=== PATIENT | female | born 1935 | race Caucasian/White ===

== ENCOUNTER 2016-11-26 21:52 | Inpatient (IN) | payer OTHER ==
--- NOTE | 2016-11-26 21:54 | PDOC ---
History of Present Illness - General Stated Complaint: FALL Time Seen by Provider: 11/26/16 21:54
[2016-11-26] MEDS ORDERED: morphine CARPU-JECT 2 MG/1 ML DISP.SYRIN IVPUSH ONE (22:13)
--- NOTE | 2016-11-26 22:24 | PDOC ---
Attending Attestation - Resident Resident Name: Portillo Carmona - HPI HPI: 11/27/16 01:43 Pt presents to the ED complaining of R hip pain after unwitnessed fall. Xray taken at [facility] on [address] is suspicious for hip fracture. - Physicial Exam PE: 11/27/16 01:43 Agree with resident's exam. R leg shortened without external rotation. 11/27/16 01:44 11/27/16 01:50 - Medical Decision Making 11/27/16 01:44 Pt presents to the ED with findings suspicious for R hip fracture. Neurovascularly intact. Mildly hypoxic on arrival, without tachypnea, tachycardia or complaints of shortness breath. + R femoral neck fracture on Ct pelvis. Will admit to hospitalist and consult orthopedics. 11/27/16 01:50
[2016-11-26] MEDS ORDERED: morphine CARPU-JECT 2 MG/1 ML DISP.SYRIN ONE (22:31)
[2016-11-26 23:02] LABS: BASOPHIL 0.2 % (0-2.0); EOSINOPHIL 0.2 % (0-4.5); MCH 36.4 pg (25.7-33.7); MCHC 34.3 g/dl (32.0-36.0); MEAN CELL VOLUME 106.1 fl (80-96); NEUTROPHILS 81.6 % (42.8-82.8); WHITE BLOOD COUNT 10.2 K/mm3 (4.0-10.0)
--- NOTE | 2016-11-26 23:13 | PDOC ---
History of Present Illness - General Chief Complaint: Injury Stated Complaint: FALL Time Seen by Provider: 11/26/16 21:54 - History of Present Illness Initial Comments: 81 yo F with h/o Alzheimers dementia presents to the ED with right hip pain. Pt. reports right sided hip pain following fall that occurred earlier in the day. Pt. is poor historian d//t underlying dementia. She endorses right sided hip pain aggravated with movement and touch. Transferred to ED from " [facility] d/t x-ray findings of foreshortening of right hip, compatible with a femoral neck fracture. She denies fevers/chills, N/V, chest pain, back pain, constipation/diarrhea, GUERRERO, LOC, dizziness, numbness/tingling. Ambulates with walker. Past History - Past Medical History Allergies/Adverse Reactions: Allergies Allergy/AdvReac Type Severity Reaction Status Date / Time No Known Allergies Allergy Verified 11/26/16 22:17 - Psycho/Social/Smoking Cessation Hx Suicidal Ideation: No Smoking History: Unknown if ever smoked Have you smoked in the past 12 months: No Information on smoking cessation initiated: No Hx Alcohol Use: No Drug/Substance Use Hx: No Review of Systems - Review of Systems Comments:: 11/26/16 23:20 GENERAL/CONSTITUTIONAL: No fever or chills. No weakness. HEAD, EYES, EARS, NOSE AND THROAT: No change in vision. No ear pain or discharge. No sore throat.- CARDIOVASCULAR: No chest pain or shortness of breath RESPIRATORY: No cough, wheezing, or hemoptysis. GASTROINTESTINAL: No nausea, vomiting, diarrhea or constipation. GENITOURINARY: No dysuria, frequency, or change in urination. MUSCULOSKELETAL: Right hip pain. No neck or back pain. SKIN: No rash NEUROLOGIC: No headache, vertigo, loss of consciousness, or change in strength/ sensation. ENDOCRINE: No increased thirst. No abnormal weight change HEMATOLOGIC/LYMPHATIC: No anemia, easy bleeding, or history of blood clots. ALLERGIC/IMMUNOLOGIC: No hives or skin allergy. *Physical Exam - Vital Signs Last Vital Signs Temp Pulse Resp BP Pulse Ox 98.6 F 80 20 162/73 91 L 11/26/16 22:05 11/26/16 22:05 11/26/16 22:05 11/26/16 22:05 11/26/16 22:05 - Physical Exam Comments: 11/26/16 23:21 GENERAL: Awake A &O to person and place. HEAD: No signs of trauma, normocephalic, atraumatic EYES: PERRLA, EOMI, sclera anicteric, conjunctiva clear ENT: Auricles normal inspection, hearing grossly normal, nares patent, oropharynx clear without exudates. Moist mucosa NECK: Normal ROM, supple, no lymphadenopathy, JVD, or masses LUNGS: No distress, speaks full sentences, clear to auscultation bilaterally HEART: Regular rate and rhythm, normal S1 and S2, no murmurs, rubs or gallops, peripheral pulses normal and equal bilaterally. ABDOMEN: Soft, nontender, normoactive bowel sounds. No guarding, no rebound. No masses EXTREMITIES: +right sided ttp at right greater trochanter. + Venous stasis change BL LE. Decreased active and pasive range of motion at right extremity. Right leg appears shorter than left. No clubbing or cyanosis. SKIN: Warm, Dry, normal turgor, no rashes or lesions noted. Heart Score/ECG Review - Electrocardiogram EKG: Normal - Age Age: >/= 65 - ECG Intrepretation Rhythm: Regular Rhythm - Combs Combs: Normal - ECG Impressions Normal ECG: Yes ED Treatment Course - LABORATORY CBC & Chemistry Diagram: 11/26/16 22:41 11/26/16 22:41 - Medications Given in the ED: ED Medications Discontinued Medications Generic Name Dose Route Start Last Admin Trade Name Freq PRN Reason Stop Dose Admin Morphine Sulfate 2 mg 11/26/16 22:13 11/26/16 22:43 Morphine Injection - IVPUSH 11/26/16 22:14 2 mg ONCE ONE Administration Medical Decision Making - Medical Decision Making 11/26/16 23:24 81 yo F with h/o Alzheimers dementia who presents with right hip pain following fall at outside nursing facility. Pt. received outside plain film which revealed forshortenign of right hip compatible with femoral neck fracture. She arrived with O2 91% RA. She denies any other associated complaints. Physical exam reveals shortened externally rotated right lower extremity. DDx: Right hip fracture, PE, pneumonia, ED Course: CBC: Unremarkable CMP: Unremarkable 11/27/16 01:37 CT Pelvis: Right femoral neck fracture Admit to med/surg *DC/Admit/Observation/Transfer Diagnosis at time of Disposition: Fracture of neck of femur Qualifiers: Encounter type: initial encounter Fracture type: closed Laterality: right Qualified Code(s): S72.001A - Fracture of unspecified part of neck of right femur, initial encounter for closed fracture - Discharge Dispostion Admit: Yes
[2016-11-26] MEDS ORDERED: LORazepam 2 MG/ML SDV VIAL ONE (23:21)
[2016-11-26 23:27] LABS: ALBUMIN 4.2 g/dl (3.4-5.0); ANION GAP 9 (8-16); BILIRUBIN,TOTAL 0.5 mg/dL (0.2-1.0); CALCIUM 9.1 mg/dL (8.5-10.1); CO2 29 mmol/L (21-32); CREATININE 0.9 mg/dL (0.55-1.02); GLUCOSE,RANDOM 135 mg/dL (74-106); SGOT/AST 19 U/L (15-37); SGPT/ALT 26 U/L (12-78); TOT PROT 6.5 g/dl (6.4-8.2)
[2016-11-26 23:29] LABS: ALK PHOS 74 U/L (45-117); CPK 158 IU/L (26-192); TROPONIN I < 0.02 ng/ml (0.00-0.05)
[2016-11-26 23:35] LABS: PLATELET COUNT 99 K/MM3 (134-434)
[2016-11-26 23:36] LABS: MACROCYTOSIS 2+; PLATELET COMMENT2 NO CLOTTING DETECTED; PLATELET ESTIMATE SLT DECREASED (NORMAL)
[2016-11-27] MEDS ORDERED: morphine CARPU-JECT 2 MG/1 ML DISP.SYRIN IVPUSH PRN ×3 (02:34→18:14)
--- NOTE | 2016-11-27 02:34 | MSN ---
Admitting History and Physical - Admission Chief Complaint: R hip pain History of Present Illness: Pt is a 81 year old female with dementia who is a poor historian. Pt states that she has right hip pain that started today. She denies any falls or other trauma before the pain started. She denies any chest pain, SOB, or abdominal pain. According the the paperwork sent with her, she started to complain of severe right hip pain after she was found sitting on the floor. She was given percocet at the time, and stat Xray revealed right femoral neck fracture. 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: Alzheimer's (stage unspecified), Dementia Renal/: Yes: UTI ...: No (Postmenopausal) Heme/Onc: Yes: Anemia (unspecified aplastic anemia) Psych: Yes: Psychosis (unspecific) ENT: Yes: Allergic Rhinitis - Smoking History Smoking history: Unknown if ever smoked Have you smoked in the past 12 months: No - Alcohol/Substance Use Hx Alcohol Use: No - Social History Usual Living Arrangement: Yes: [facility] Home Medications - Allergies Allergies/Adverse Reactions: Allergies Allergy/AdvReac Type Severity Reaction Status Date / Time No Known Allergies Allergy Verified 11/26/16 22:17 - Home Medications Home Medications: Ambulatory Orders Acetaminophen [Tylenol .Extra-Strength -] 1,000 mg PO BID PRN 11/27/16 Brimonidine Tartrate/Timolol [Combigan 0.2%-0.5% Eye Drops] 1 drop OU BID Citalopram Hydrobromide [Celexa -] 10 mg PO DAILY 11/27/16 Cyanocobalamin Vit B-12 Inj. [Vitamin B12 Injection -] 1 ml IM Q30D 11/27/16 Folic Acid 1 tab PO DAILY 11/27/16 Hydrocortisone 2.5% Lotion [Hytone 2.5% Lotion -] 1 applic TD DAILY 11/27/16 Latanoprost 0.005% Eye Drops [Xalatan 0.005% Eye Drops -] 1 drop OU HS 11/27/16 Oxycodone HCl/Acetaminophen [Percocet 5-325 mg Tablet] 1 tab PO TID PRN Risperidone [Risperdal -] 0.25 mg PO TID 11/27/16 Risperidone [Risperdal -] 0.5 mg PO TID 11/27/16 Family Disease History - Family Disease History Family History: Unable to Obtain Review of Systems - Review of Systems Constitutional: denies: Chills, Fever Cardiovascular: denies: Chest Pain Respiratory: denies: SOB Gastrointestinal: denies: Constipation, Diarrhea Physical Examination Vital Signs: Vital Signs Temperature 98.6 F 11/26/16 22:05 Pulse Rate 80 11/26/16 22:05 Respiratory Rate 20 11/26/16 22:05 Blood Pressure 162/73 11/26/16 22:05 O2 Sat by Pulse Oximetry (%) 91 L 11/26/16 22:05 Constitutional: Yes: Well Nourished, No Distress, Calm Eyes: Yes: Conjunctiva Clear, EOM Intact HENT: Yes: Atraumatic, Normocephalic Neck: Yes: Supple, Trachea Midline Cardiovascular: Yes: Regular Rate and Rhythm, S1, S2 Respiratory: Yes: Regular, CTA Bilaterally Gastrointestinal: Yes: Normal Bowel Sounds, Soft ...Rectal Exam: Yes: Deferred Extremities: Yes: Other (R hip tenderness) Edema: Yes Edema: LLE: 2+ (up to mid lopez), RLE: 2+ (up to mid lopez) Peripheral Pulses WNL: Yes Peripheral Pulses: Left Radial: 2+, Right Radial: 2+, Left Doralis Pedis: 2+, Right Dorsalis Pedis: 2+ Integumentary: Yes: WNL Neurological: Yes: Alert, Oriented (oriented to person but not to place or time) , Cran Nerves II-XII Intact ...Motor Strength: WNL Psychiatric: Yes: Alert, Oriented (oriented to person but not place or time) Labs: Laboratory Results - last 24 hr 11/26/16 11/26/16 11/26/16 22:41 22:41 22:41 WBC 10.2 H RBC 3.45 L Hgb 12.6 Hct 36.7 MCV 106.1 H MCH 36.4 H MCHC 34.3 RDW 13.0 Plt Count 99 L MPV 8.0 Neutrophils % 81.6 Lymphocytes % 7.3 L Monocytes % 10.7 H Eosinophils % 0.2 Basophils % 0.2 Platelet Estimate Slt decreased Platelet Comment No clotting detected Macrocytosis 2+ Morphology Comment INR 1.00 Sodium 139 Potassium 3.8 Chloride 101 Carbon Dioxide 29 Anion Gap 9 BUN 17 Creatinine 0.9 Creat Clearance w eGFR 59.80 Random Glucose 135 H Calcium 9.1 Total Bilirubin 0.5 AST 19 ALT 26 Alkaline Phosphatase 74 Creatine Kinase 158 Creatine Kinase Index 2.2 CK-MB (CK-2) 3.525 Troponin I < 0.02 B-Natriuretic Peptide 106.58 Total Protein 6.5 Albumin 4.2 Blood Type Antibody Screen 11/26/16 11/27/16 22:41 00:50 WBC RBC Hgb Hct MCV MCH MCHC RDW Plt Count MPV Neutrophils % Lymphocytes % Monocytes % Eosinophils % Basophils % Platelet Estimate Platelet Comment Macrocytosis Morphology Comment INR Sodium Potassium Chloride Carbon Dioxide Anion Gap BUN Creatinine Creat Clearance w eGFR Random Glucose Calcium Total Bilirubin AST ALT Alkaline Phosphatase Creatine Kinase Creatine Kinase Index CK-MB (CK-2) Troponin I B-Natriuretic Peptide Total Protein Albumin Blood Type O NEGATIVE O NEGATIVE Antibody Screen Negative Imaging - Results X-ray: Image Reviewed (right hip fracture of the femoral neck) Cat Scan: Image Reviewed (right hip fracture of the femoral neck) Assessment/Plan Pt is a 81 year old female with a PMH of dementia who was brought in after being found on the floor and complaining of R hip pain. 1) R femoral neck fracture * Pain control with IV morphine 1mg q4hr * IV hydration with NS * Falls risk precautions * Immobilize the pt * NPO * Neurologic exam and peripheral pulses q2hr * Consult ortho * Consult PT 2) Thrombocytopenia * Continue to monitor 3) Hypoxia * Place on 2L O2 after saturation dropped to 88% 4) Prophylaxis * DVT: SCDs * GI: None indicated at this time 5) Dispo * Admit to Med-Surg
--- NOTE | 2016-11-27 02:40 | HP ---
CHIEF COMPLAINT: R hip pain PCP: Dr. Sherfi Haque HISTORY OF PRESENT ILLNESS: Pt is a 81yo F w/ PMHx of Alzheimers Dementia who presented from [facility] with R hip pain. Patient is a poor historian, most of the history is obtained from paperwork from [facility]. States that patient was sitting on the floor and upon assessment, complained of severe R hip pain. No fall was witnessed. Patient does not recall a fall. She was given Percocet and a stat Hip XR was ordered which revealed a R femoral neck fracture. Other than the R hip pain, the patient offers no other complaints. No fevers, no chills, no CP, no SOB. ER course was notable for: (1) EKG - NSR (2) Pelvic CT w/o contrast - diffuse bone demineralization, acute mildly impacted subcapital R femoral neck fracture (3) Morphine 2mg IVP x1 (4) CXR - reviewed by MD, no focal consolidation or congestion, CVA visible bilaterally Recent Travel: Denies PAST MEDICAL HISTORY: Alzheimers Dementia Social History: Lives at [facility] Smoking: Unable to obtain Alcohol: Unable to obtain Drugs: Unable to obtain Family History: Unable to obtain Allergies: Aspirin HOME MEDICATIONS: Home Medications Medication Instructions Recorded Acetaminophen [Tylenol 1,000 mg PO BID PRN 11/27/16 .Extra-Strength -] Brimonidine Tartrate/Timolol 1 drop OU BID 11/27/16 [Combigan 0.2%-0.5% Eye Drops] Citalopram Hydrobromide [Celexa -] 10 mg PO DAILY 11/27/16 Cyanocobalamin Vit B-12 Inj. 1 ml IM Q30D 11/27/16 [Vitamin B12 Injection -] Folic Acid 1 tab PO DAILY 11/27/16 Hydrocortisone 2.5% Lotion [Hytone 1 applic TD DAILY 11/27/16 2.5% Lotion -] Latanoprost 0.005% Eye Drops 1 drop OU HS 11/27/16 [Xalatan 0.005% Eye Drops -] Oxycodone HCl/Acetaminophen 1 tab PO TID PRN 11/27/16 [Percocet 5-325 mg Tablet] Risperidone [Risperdal -] 0.25 mg PO TID 11/27/16 Risperidone [Risperdal -] 0.5 mg PO TID 11/27/16 REVIEW OF SYSTEMS CONSTITUTIONAL: Absent: fever, chills, diaphoresis, generalized weakness, malaise, loss of appetite, weight change HEENT: Absent: rhinorrhea, nasal congestion, throat pain, throat swelling, difficulty swallowing, mouth swelling, ear pain, eye pain, visual changes CARDIOVASCULAR: Absent: chest pain, syncope, palpitations, irregular heart rate, lightheadedness , peripheral edema RESPIRATORY: Absent: cough, shortness of breath, dyspnea with exertion, orthopnea, wheezing, stridor, hemoptysis GASTROINTESTINAL: Absent: abdominal pain, abdominal distension, nausea, vomiting, diarrhea, constipation, melena, hematochezia GENITOURINARY: Absent: dysuria, frequency, urgency, hesitancy, hematuria, flank pain, genital pain MUSCULOSKELETAL: Absent: joint swelling, back pain, neck pain Present: arthralgia, myalgia SKIN: Absent: rash, itching, pallor HEMATOLOGIC/IMMUNOLOGIC: Absent: easy bleeding, easy bruising, lymphadenopathy, frequent infections ENDOCRINE: Absent: unexplained weight gain, unexplained weight loss, heat intolerance, cold intolerance NEUROLOGIC: Absent: headache, focal weakness or paresthesias, dizziness, unsteady gait, seizure, mental status changes, bladder or bowel incontinence PSYCHIATRIC: Absent: anxiety, depression, suicidal or homicidal ideation, hallucinations. PHYSICAL EXAMINATION GEN: Awake, alert, oriented x1 to person - at baseline, confused HEENT: PERRLA, EOMi, no cervical LAD, no scalp lacerations CV: S1, S2, RRR LUNG: Difficult to assess, anterior lung exam was clear ABD: Soft, NT, ND, normoactive BS MSK: Lower Extremities - blue discolored bruise on R hip, B/L +1 pitting edema from midshin to feet w/ mild venous stasis changes, +2 pulses Upper Extremities - no edema, no erythema NEURO: AAO x1, confused at baseline, follows commands, CN 2-12 grossly intact, no facial droop, 5/5 muscle strength Laboratory Last Values WBC 10.2 K/mm3 (4.0-10.0) H 11/26/16 22:41 RBC 3.45 M/mm3 (3.60-5.2) L 11/26/16 22:41 Hgb 12.6 GM/dL (10.7-15.3) 11/26/16 22:41 Hct 36.7 % (32.4-45.2) 11/26/16 22:41 MCV 106.1 fl (80-96) H 11/26/16 22:41 MCH 36.4 pg (25.7-33.7) H 11/26/16 22:41 MCHC 34.3 g/dl (32.0-36.0) 11/26/16 22:41 RDW 13.0 % (11.6-15.6) 11/26/16 22:41 Plt Count 99 K/MM3 (134-434) L 11/26/16 22:41 MPV 8.0 fl (7.5-11.1) 11/26/16 22:41 Neutrophils % 81.6 % (42.8-82.8) 11/26/16 22:41 Lymphocytes % 7.3 % (8-40) L 11/26/16 22:41 Monocytes % 10.7 % (3.8-10.2) H 11/26/16 22:41 Eosinophils % 0.2 % (0-4.5) 11/26/16 22:41 Basophils % 0.2 % (0-2.0) 11/26/16 22:41 Platelet Estimate Slt decreased (NORMAL) 11/26/16 22:41 Platelet Comment No clumping noted 11/26/16 22:41 Platelet Comment No clotting detected 11/26/16 22:41 Macrocytosis 2+ 11/26/16 22:41 Morphology Comment 11/26/16 22:41 INR 1.00 (0.82-1.09) 11/26/16 22:41 Sodium 139 mmol/L (136-145) 11/26/16 22:41 Potassium 3.8 mmol/L (3.5-5.1) 11/26/16 22:41 Chloride 101 mmol/L (98-107) 11/26/16 22:41 Carbon Dioxide 29 mmol/L (21-32) 11/26/16 22:41 Anion Gap 9 (8-16) 11/26/16 22:41 BUN 17 mg/dL (7-18) 11/26/16 22:41 Creatinine 0.9 mg/dL (0.55-1.02) 11/26/16 22:41 Creat Clearance w eGFR 59.80 (>60) 11/26/16 22:41 Random Glucose 135 mg/dL (74-106) H 11/26/16 22:41 Calcium 9.1 mg/dL (8.5-10.1) 11/26/16 22:41 Total Bilirubin 0.5 mg/dL (0.2-1.0) 11/26/16 22:41 AST 19 U/L (15-37) 11/26/16 22:41 ALT 26 U/L (12-78) 11/26/16 22:41 Alkaline Phosphatase 74 U/L (45-117) 11/26/16 22:41 Creatine Kinase 158 IU/L (26-192) 11/26/16 22:41 Creatine Kinase Index 2.2 % (0.0-5.0) 11/26/16 22:41 CK-MB (CK-2) 3.525 ng/mL (0.5-3.6) 11/26/16 22:41 Troponin I < 0.02 ng/ml (0.00-0.05) 11/26/16 22:41 B-Natriuretic Peptide 106.58 pg/ml (5-450) 11/26/16 22:41 Total Protein 6.5 g/dl (6.4-8.2) 11/26/16 22:41 Albumin 4.2 g/dl (3.4-5.0) 11/26/16 22:41 Blood Type O NEGATIVE 11/27/16 00:50 Antibody Screen Negative 11/26/16 22:41 Home Medication List Medication Instructions Recorded Confirmed Type Acetaminophen [Tylenol 1,000 mg PO BID PRN 11/27/16 11/27/16 History .Extra-Strength -] Brimonidine Tartrate/Timolol 1 drop OU BID 11/27/16 11/27/16 History [Combigan 0.2%-0.5% Eye Drops] Citalopram Hydrobromide [Celexa -] 10 mg PO DAILY 11/27/16 11/27/16 History Cyanocobalamin Vit B-12 Inj. 1 ml IM Q30D 11/27/16 11/27/16 History [Vitamin B12 Injection -] Folic Acid 1 tab PO DAILY 11/27/16 11/27/16 History Hydrocortisone 2.5% Lotion [Hytone 1 applic TD DAILY 11/27/16 11/27/16 History 2.5% Lotion -] Latanoprost 0.005% Eye Drops 1 drop OU HS 11/27/16 11/27/16 History [Xalatan 0.005% Eye Drops -] Oxycodone HCl/Acetaminophen 1 tab PO TID PRN 11/27/16 11/27/16 History [Percocet 5-325 mg Tablet] Risperidone [Risperdal -] 0.25 mg PO TID 11/27/16 11/27/16 History Risperidone [Risperdal -] 0.5 mg PO TID 11/27/16 11/27/16 History Active Medications Generic Name Dose Route Start Last Admin Trade Name Toniq PRN Reason Stop Dose Admin Citalopram Hydrobromide 10 mg 11/27/16 10:00 Celexa - PO DAILY MAHESH Folic Acid mg 11/27/16 10:00 Folic Acid - PO DAILY [facility] Hydrocortisone 1 applic 11/27/16 09:00 Hytone 2.5% Lotion - TP BID [facility] Sodium Chloride 1,000 mls @ 42 mls/hr 11/27/16 02:45 Normal Saline - IV ASDIR [facility] Latanoprost 1 drop 11/27/16 22:00 Xalatan 0.005% Eye Drops - OU HS [facility] Morphine Sulfate 1 mg 11/27/16 02:34 Morphine Injection - IVPUSH Q6H PRN PAIN Non-Formulary Medication 1 drop 11/27/16 10:00 Brimonidine Tartrate/Timolol [Combigan 0.2%-0.5% Eye Drops] OU BID [facility] Risperidone 0.25 mg 11/27/16 06:00 Risperdal - PO TID [facility] ASSESSMENT/PLAN: Pt is an 81yo F w/ PMHx of dementia who presented from [facility] w/ R hip pain found to have a R femoral neck fx. # Right Femoral Neck Fracture - Possible fall, pt was found sitting on floor - No obvious compromise to nerves or arterial circulation - Pain control w/ Morphine 1mg Q6 PRN - Ortho consulted - Coags, Type + Screen done - Bedrest for now - can change based on ortho reccs to allow Physical Therapy - Fall precautions - Neuro checks Q4 # Thrombocytopenia - On papers from [facility], no indication of chronic diagnosis - No active bleeding currently - We took the thrombocytopenia into consideration when determining DVT prophylaxis. Since the patient is high risk for DVT, the benefits of thromboprophylaxis with Heparin outweighs the risks. - Continue to trend PLT, monitor for HIT # Leukocytosis - Likely reactive, no signs of active infection, no fever # Hypoxia - O2 91 on admission, 88 on exam resting, improved to 96 w/ 2L - Continue 2L NC # Macrocytosis - No anemia - Macrocytosis is likely from folate + B12 use # Hx of MDD - Continue Celexa 10mg QD # Hx of Psychosis - Continue Risperdal 0.75mg TID # Prophylaxis - DVT: SCDs + 1 dose Heparin SQ given since patient is high risk for DVT, and benefits outweigh risks. If no procedure switch to Heparin - GI: Not indicated - Deconditioning: PT ordered # FEN - Fluids: IVNS 42cc/hr - can discontinue if no procedure - Electrolytes: WNL - Nutrition: NPO for possible procedure - can return to Regular diet if no procedure (pt had Regular diet w/ regular consistency at [facility]) # Dispo - Admit to Med/Surg - Pain control - Await ortho reccs # Med Rec - Medications were reconciled w/ [facility] paperwork, added in chart Case d/w Dr. Pedroza and Dr. Dana Sahni, PGY1 - Internal Medicine Visit type - Emergency Visit Emergency Visit: Yes ED Registration Date: 11/27/16 Care time: The patient presented to the Emergency Department on the above date and was hospitalized for further evaluation of their emergent condition. - New Patient This patient is new to me today: Yes Date on this admission: 11/27/16 - Critical Care Critical Care patient: No
[2016-11-27] MEDS ORDERED: SODIUM CHLORIDE 1,000 ML IV SCH (02:45)
[2016-11-27 04:43] VITALS: BMI 25.6
[2016-11-27] MEDS ORDERED: PT OWN MED DRAWER 7, Y5N ONE ×3 (05:28→22:07)
--- NOTE | 2016-11-27 05:41 | PN ---
Teaching Attending Note Name of Resident: Trae Sahni ATTENDING PHYSICIAN STATEMENT I saw and evaluated the patient. I reviewed the resident's note and discussed the case with the resident. I agree with the resident's findings and plan as documented. SUBJECTIVE:Patient transferred from [facility] after being found on the floor c/o right hip pain. PMH; Dementia and therefore poor historian OBJECTIVE: Physical exam significant for pain on palpation of right hip with limited ROM, slight edema, palpable pulses ASSESSMENT AND PLAN: Right hip fracture s/p unwitnessed fall fall risk precautions morphine 1mg q6h prn for pain ortho consult b12 and folate levels dvt prophylaxis
[2016-11-27] MEDS: risperiDONE 0.25 MG TABLET (FP) PO SCH ×3 (06:02→22:07)
[2016-11-27] MEDS: risperiDONE 0.5 MG TABLET (FP) PO SCH ×3 (06:03→22:04)
[2016-11-27] MEDS ORDERED: HEPARIN NA (PORCINE) 5,000 UNITS/ML 1ML VIAL SQ ONE (06:48)
[2016-11-27] MEDS ORDERED: CITALOPRAM HYDROBROMIDE 10 MG TABLET (FP) PO SCH (10:00)
[2016-11-27] MEDS ORDERED: TIMOLOL 0.5% OPHTHALMIC SOL 5 ML BOTTLE OU SCH (10:00)
[2016-11-27] MEDS ORDERED: FOLIC ACID 1 MG TABLET (FP) PO SCH (10:00)
[2016-11-27] MEDS ORDERED: BRIMONIDINE TARTRATE 0.2% OPHTHALMIC 5 ML BOTTLE OU SCH (10:00)
[2016-11-27] MEDS ORDERED: PATIENT'S OWN MEDICATION (NON-FORMULARY) (Brimonidine Tartrate/Timolol [Combigan 0.2%-0.5% OU SCH (10:00)
[2016-11-27] MEDS: HYDROCORTISONE 2.5% LOTION - 1 BOTTLE TP SCH ×2 (10:49→22:04)
--- NOTE | 2016-11-27 14:14 | PN ---
Physical Exam: SUBJECTIVE: Patient seen and examined at bed side. Se seems comfortable , not able to obtain history due to dementia. OBJECTIVE: Vital Signs Period Temp Pulse Resp BP Sys/Tena Pulse Ox Last 24 Hr 98.2 F-99.7 F 72-86 18-20 147-190/76-88 95-98 GENERAL: The patient is awake, alert, and fully oriented, in no acute distress. HEAD: Normal with no signs of trauma. EYES: PERRL, conjunctiva clear. No ptosis. ENT: moist mucous membranes. NECK: Trachea midline, full range of motion, supple. LUNGS: Breath sounds equal, clear to auscultation bilaterally, no wheezes, no crackles, no accessory muscle use. HEART: Regular rate and rhythm, S1, S2 without murmur, rub or gallop. ABDOMEN: Soft, nontender, nondistended, normoactive bowel sounds, no guarding, no rebound, no hepatosplenomegaly, no masses. EXTREMITIES: 2+ pulses, warm, well-perfused, no edema. painful on movement. +2 edema NEUROLOGICAL: Normal speech, gait not observed. PSYCH: Normal mood, normal affect. SKIN: Warm, dry, normal turgor, no rashes or lesions noted Active Medications Generic Name Dose Route Start Last Admin Trade Name Freq PRN Reason Stop Dose Admin Brimonidine Tartrate 1 drop 11/27/16 10:00 11/27/16 10:49 Alphagan 0.2% - OU Not Given BID MAHESH Citalopram Hydrobromide 10 mg 11/27/16 10:00 11/27/16 10:49 Celexa - PO 10 mg DAILY MAHESH Administration Folic Acid 1 mg 11/27/16 10:00 11/27/16 10:49 Folic Acid - PO 1 mg DAILY MAHESH Administration Heparin Sodium (Porcine) 5,000 unit 11/27/16 22:00 Heparin - SQ BID MAHESH Hydrocortisone 1 applic 11/27/16 09:00 11/27/16 10:49 Hytone 2.5% Lotion - TP Not Given BID MAHESH Sodium Chloride 1,000 mls @ 42 mls/hr 11/27/16 02:45 11/27/16 04:03 Normal Saline - IV 42 mls/hr ASDIR MAHESH Administration Latanoprost 1 drop 11/27/16 22:00 Xalatan 0.005% Eye Drops - OU HS MAHESH Morphine Sulfate 1 mg 11/27/16 05:38 11/27/16 06:05 Morphine Injection - IVPUSH 1 mg Q6H PRN Administration PAIN Risperidone 0.25 mg 11/27/16 06:00 11/27/16 06:02 Risperdal - PO 0.25 mg TID MAHESH Administration Risperidone 0.5 mg 11/27/16 06:00 11/27/16 06:03 Risperdal - PO 0.5 mg TID MAHESH Administration Timolol Maleate 1 drop 11/27/16 10:00 11/27/16 10:50 Timoptic 0.5% OU Not Given BID MAHESH CBC, BMP 11/26/16 22:41 11/26/16 22:41 ASSESSMENT/PLAN: Patient is currently medically optomized for this orthopedics surgery at this time. Pt is an 81yo F w/ PMHx of dementia who presented from [facility] w/ R hip pain found to have a R femoral neck fx. # Right Femoral Neck Fracture - Possible fall, pt was found sitting on floor - Sensation intact, - Pain control w/ Morphine 1mg Q6 PRN - Ortho consulted - Coags, Type + Screen done - Bedrest for now - Fall precautions - Neuro checks Q4 - will benifit for ALISHA after the surgery #Patient is currently medically optomized for this orthopedics surgery at this time. # Thrombocytopenia - PLT 99 on admission - No active bleeding currently - Continue to trend PLT, monitor for HIT # Leukocytosis - Likely reactive, no signs of active infection, no fever - F/U CBC # Hypoxia - O2 91 on admission, 88 on exam resting, improved to 96 w/ 2L - Continue 2L NC # Macrocytosis - No anemia - Macrocytosis is likely from folate + B12 use # Hx of MDD - Continue Celexa 10mg QD # Hx of Psychosis - Continue Risperdal 0.75mg TID # Prophylaxis - DVT: SCDs + 1 dose Heparin SQ given since patient is high risk for DVT, - continue Heparin after procedure - GI: Not indicated - Deconditioning: PT ordered # FEN - Fluids: IVNS 42cc/hr - Electrolytes: WNL - Nutrition: NPO for procedure today # Dispo - Admit to Med/Surg - Pain control This is an 81 year old woman with a history of dementia who presented from [facility] with right hip pain after a fall. 1. Right femoral neck fracture - Pain control - Orthopedic surgery consult 2. Thrombocytopenia - Monitor platelets 3. Alzheimer dementia with depression and psychosis - Continue Jose Wilks Visit type - Emergency Visit Emergency Visit: Yes ED Registration Date: 11/27/16 Care time: The patient presented to the Emergency Department on the above date and was hospitalized for further evaluation of their emergent condition. - New Patient This patient is new to me today: Yes Date on this admission: 11/27/16 - Critical Care Critical Care patient: No
[2016-11-27] MEDS ORDERED: ceFAZolin SODIUM 1 GM VIAL ONE (16:07)
[2016-11-27] MEDS ORDERED: ceFAZolin SODIUM 1 GM VIAL IVPB ONE (16:25)
--- NOTE | 2016-11-27 17:03 | CONSULT ---
Consult - text type - Consultation Consultation Note: Asked to evaluate this 81F admitted with a right FN fracture. Patient is demented. Prior ambulator. Had an unwitnessed fall. Resides at [facility]. PMH: dementia Meds: reviewed in chart All: NKDA FH: n/C ROS: unable to obtain PE: awake, generally cooperative but intermittently following instructions skin no lesions, ecchymosus right lateral hip Painful ROM of right hip Neurologically grossly intact Distal pulses 2+ Xrays/CT: valgus impacted FN fx Imp: Valgus impacted FN fx -indicated for cannulated screws -R/B/A discussed in detail with healthcare proxy Jelly Mccall. Risks include anesthesia complications, infection, non union, malunion, hardware failure. May need arthroplasty if does not heal.
--- NOTE | 2016-11-27 18:16 | PN ---
Teaching Attending Note Name of Resident: Dennys Head ATTENDING PHYSICIAN STATEMENT I saw and evaluated the patient. I reviewed the resident's note and discussed the case with the resident. I agree with the resident's findings and plan as documented. SUBJECTIVE: Patient appears comfortable. OBJECTIVE: Vital Signs Period Temp Pulse Resp BP Sys/Tena Pulse Ox Last 24 Hr 98.2 F-99.7 F 72-104 18-20 147-190/73-88 91-98 HEART: S1S2, RRR LUNGS: Clear ABDOMEN: Soft, non-distended, normal BS EXTREMITIES: No edema Current Medications Generic Name Dose Route Start Last Admin Trade Name Freq PRN Reason Stop Dose Admin Brimonidine Tartrate 1 drop 11/27/16 10:00 11/27/16 10:49 Alphagan 0.2% - OU Not Given BID MAHESH Citalopram Hydrobromide 10 mg 11/27/16 10:00 11/27/16 10:49 Celexa - PO 10 mg DAILY MAHESH Administration Docusate Sodium 100 mg 11/27/16 22:00 Colace - PO BID MAHESH Folic Acid 1 mg 11/27/16 10:00 11/27/16 10:49 Folic Acid - PO 1 mg DAILY MAHESH Administration Heparin Sodium (Porcine) 5,000 unit 11/27/16 22:00 Heparin - SQ BID MAHESH Hydrocortisone 1 applic 11/27/16 09:00 11/27/16 10:49 Hytone 2.5% Lotion - TP Not Given BID MAHESH Sodium Chloride 1,000 mls @ 42 mls/hr 11/27/16 02:45 11/27/16 04:03 Normal Saline - IV 42 mls/hr ASDIR MAHESH Administration Cefazolin Sodium 1 gm/ 50 mls @ 100 mls/hr 11/27/16 18:00 Dextrose IVPB 11/28/16 02:29 Q8H-IV MAHESH Latanoprost 1 drop 11/27/16 22:00 Xalatan 0.005% Eye Drops - OU HS MAHESH Morphine Sulfate 1 mg 11/27/16 05:38 11/27/16 06:05 Morphine Injection - IVPUSH 1 mg Q6H PRN Administration PAIN Risperidone 0.25 mg 11/27/16 06:00 11/27/16 14:26 Risperdal - PO Not Given TID MAHESH Risperidone 0.5 mg 11/27/16 06:00 11/27/16 14:26 Risperdal - PO Not Given TID MAHESH Timolol Maleate 1 drop 11/27/16 10:00 11/27/16 10:50 Timoptic 0.5% OU Not Given BID MAHESH ASSESSMENT AND PLAN: This is an 81 year old woman with a history of dementia who presented from [facility] with right hip pain after a fall. 1. Right femoral neck fracture - Pain control - Orthopedic surgery consult 2. Thrombocytopenia - Monitor platelets 3. Alzheimer dementia with depression and psychosis - Continue Celexa, Risperdal
[2016-11-27] MEDS: CEFAZOLIN 1 GM in DEXTROSE 5%-WATER - 50 ML IVPB SCH (20:54)
[2016-11-27] MEDS ORDERED: HEPARIN NA (PORCINE) 5,000 UNITS/ML 1ML VIAL SQ SCH (22:00)
[2016-11-27] MEDS ORDERED: LATANOPROST 0.005% OPHTH SOLN 2.5ML BOTTLE OU SCH (22:00)
[2016-11-27] MEDS: DOCUSATE SODIUM 100 MG CAPSULE (FP) PO SCH (22:04)
[2016-11-27] MEDS: BRIMONIDINE TARTRATE 0.2% OPHTHALMIC 5 ML BOTTLE OU SCH (22:04)
[2016-11-27] MEDS: HEPARIN NA (PORCINE) 5,000 UNITS/ML 1ML VIAL SQ SCH (22:04)
[2016-11-27] MEDS: TIMOLOL 0.5% OPHTHALMIC SOL 5 ML BOTTLE OU SCH (22:05)
[2016-11-27] MEDS: LATANOPROST 0.005% OPHTH SOLN 2.5ML BOTTLE OU SCH (22:05)
[2016-11-28] MEDS ORDERED: ceFAZolin SODIUM 1 GM VIAL ONE (01:03)
[2016-11-28] MEDS ORDERED: DEXTROSE 5%-WATER - 50 ML IVPB ONE (01:04)
[2016-11-28] MEDS: CEFAZOLIN 1 GM in DEXTROSE 5%-WATER - 50 ML IVPB SCH (01:05)
[2016-11-28] MEDS ORDERED: PT OWN MED DRAWER 7, Y5N ONE ×3 (05:54→20:41)
[2016-11-28] MEDS: risperiDONE 0.5 MG TABLET (FP) PO SCH ×3 (05:58→21:21)
[2016-11-28] MEDS: risperiDONE 0.25 MG TABLET (FP) PO SCH ×3 (05:58→22:01)
--- NOTE | 2016-11-28 07:57 | OP ---
DATE OF OPERATION: 11/27/2016 PREOPERATIVE DIAGNOSIS: Right valgus impacted femoral neck fracture. POSTOPERATIVE DIAGNOSIS: Right valgus impacted femoral neck fracture. PROCEDURE PERFORMED: Operative fixation of right valgus impacted femoral neck fracture with 3 cannulated screws. IMPLANTS: [place] partially threaded cannulated screws 6.5 mm in diameter x3 (90 mm, 90 mm, 100 mm). SURGEON: Johann Craig MD ANESTHESIA: Spinal. INDICATION: The patient is an 81-year-old female who sustained an [facility]ed [facility]. She was brought into the emergency room because she was complaining of severe right hip pain. X-rays showed a valgus impacted right femoral neck fracture. She was indicated for operative fixation. Risks, benefits, and alternatives of the surgery were discussed in detail with her healthcare proxy, sister, and informed consent was obtained. DESCRIPTION OF PROCEDURE: The patient was brought into the operating room via stretcher, and spinal anesthesia was administered by the anesthesiologist. The patient was then transferred onto the OR fracture table. Right lower extremity was placed in gentle internal rotation without traction placed so as not to displace the fracture. The left lower extremity was placed in flexion, external rotation. Prophylactic IV antibiotics were administered. The right hip was prepped and draped in the usual sterile fashion. Fluoroscopic exam was brought in, and AP and lateral laparoscopic radiographs showed excellent alignment without displacement of the fracture. A small incision was made on the right lateral thigh, and 3 guidewires were inserted under fluoroscopic guidance. Three cannulated screws were then inserted after passing the cannulated drill. Excellent position of the screw was noted in both the AP and lateral planes. The wound was then irrigated and the dermal tissue applied with 2-0 Vicryl suture. The skin was closed with timmy, and a sterile dressing was applied. The patient tolerated the procedure well without complications. Joann [id number]
[2016-11-28] MEDS: FOLIC ACID 1 MG TABLET (FP) PO SCH (09:59)
[2016-11-28] MEDS: amLODIPine BESYLATE 5 MG TABLET (FP) PO SCH (09:59)
[2016-11-28] MEDS: HYDROCORTISONE 2.5% LOTION - 1 BOTTLE TP SCH ×2 (10:00→21:20)
[2016-11-28] MEDS: CITALOPRAM HYDROBROMIDE 10 MG TABLET (FP) PO SCH (10:00)
[2016-11-28] MEDS: DOCUSATE SODIUM 100 MG CAPSULE (FP) PO SCH ×2 (10:00→21:19)
[2016-11-28] MEDS: HEPARIN NA (PORCINE) 5,000 UNITS/ML 1ML VIAL SQ SCH ×2 (10:00→21:19)
[2016-11-28] MEDS: TIMOLOL 0.5% OPHTHALMIC SOL 5 ML BOTTLE OU SCH ×2 (10:02→21:17)
[2016-11-28] MEDS: BRIMONIDINE TARTRATE 0.2% OPHTHALMIC 5 ML BOTTLE OU SCH ×2 (10:02→21:19)
--- NOTE | 2016-11-28 10:31 | PN ---
Physical Exam: SUBJECTIVE: Patient seen and examined at bed side. Se seems comfortable , not able to obtain history due to dementia. OBJECTIVE: Vital Signs Period Temp Pulse Resp BP Sys/Tena Pulse Ox Last 24 Hr 98 F-99.7 F 55-104 16-20 120-180/49-96 94-100 GENERAL: The patient is awake, alert, and fully oriented, in no acute distress. HEAD: Normal with no signs of trauma. EYES: PERRL, extraocular movements intact, sclera anicteric, conjunctiva clear. No ptosis. ENT: Ears normal, nares patent, oropharynx clear without exudates, moist mucous membranes. NECK: Trachea midline, full range of motion, supple. LUNGS: Breath sounds equal, clear to auscultation bilaterally, no wheezes, no crackles, no accessory muscle use. HEART: Regular rate and rhythm, S1, S2 without murmur, rub or gallop. ABDOMEN: Soft, nontender, nondistended, normoactive bowel sounds, no guarding, no rebound, no hepatosplenomegaly, no masses. EXTREMITIES: 2+ pulses, warm, well-perfused, no edema. NEUROLOGICAL: Cranial nerves II through XII grossly intact. Normal speech, gait not observed. PSYCH: Normal mood, normal affect. SKIN: Warm, dry, normal turgor, no rashes or lesions noted Active Medications Generic Name Dose Route Start Last Admin Trade Name Freq PRN Reason Stop Dose Admin Amlodipine Besylate 5 mg 11/28/16 10:00 11/28/16 09:59 Norvasc - PO 5 mg DAILY MAHESH Administration Brimonidine Tartrate 1 drop 11/27/16 22:00 11/28/16 10:02 Alphagan 0.2% - OU 1 drop BID MAHESH Administration Citalopram Hydrobromide 10 mg 11/28/16 10:00 11/28/16 10:00 Celexa - PO 10 mg DAILY MAHESH Administration Docusate Sodium 100 mg 11/27/16 22:00 11/28/16 10:00 Colace - PO 100 mg BID MAHESH Administration Folic Acid 1 mg 11/28/16 10:00 11/28/16 09:59 Folic Acid - PO 1 mg DAILY MAHESH Administration Heparin Sodium (Porcine) 5,000 unit 11/27/16 22:00 11/28/16 10:00 Heparin - SQ 5,000 unit BID MAHESH Administration Hydrocortisone 1 applic 11/27/16 22:00 11/28/16 10:00 Hytone 2.5% Lotion - TP 1 applic BID MAHESH Administration Sodium Chloride 1,000 mls @ 42 mls/hr 11/27/16 18:14 Normal Saline - IV ASDIR MAHESH Latanoprost 1 drop 11/27/16 22:00 11/27/16 22:05 Xalatan 0.005% Eye Drops - OU 1 drop HS MAHESH Administration Morphine Sulfate 1 mg 11/27/16 18:14 11/28/16 01:33 Morphine Injection - IVPUSH 1 mg Q6H PRN Administration PAIN Risperidone 0.25 mg 11/27/16 22:00 11/28/16 05:58 Risperdal - PO 0.25 mg TID MAHESH Administration Risperidone 0.5 mg 11/27/16 22:00 11/28/16 05:58 Risperdal - PO 0.5 mg TID MAHESH Administration Timolol Maleate 1 drop 11/27/16 22:00 11/28/16 10:02 Timoptic 0.5% OU 1 drop BID MAHESH Administration ASSESSMENT/PLAN: Pt is an 81yo F w/ PMHx of dementia who presented from [facility] w/ R hip pain found to have a R femoral neck fx. # Right Femoral [facility] 2/2 unwitnessed fall - post op day 1 surgery day 11/27 - neurological exam grossly intact , - Pain control w/ Morphine 1mg Q6 PRN - Bedrest for now - Fall precautions - Neuro checks Q4 -Physical therapy as tolerated - will benifit for ALISHA after the surgery # elevated Blood Pressure - BP today 180/90 - Start Amlodipine 5 mg PO daily - Monitor BP # Thrombocytopenia - PLT 99 on admission - No active bleeding currently - Continue to trend PLT, monitor for HIT # Leukocytosis - wbc 10.2 today Likely reactive, no signs of active infection, no fever - F/U CBC # Macrocytosis - No anemia - Macrocytosis is likely from folate + B12 use # Hx of MDD - Continue Celexa 10mg QD # Hx of Psychosis - Continue Risperdal 0.75mg TID # Prophylaxis - DVT: SCDs , Heparin 5000 SQ tanisha, - GI: Not indicated - Deconditioning: PT ordered # FEN - Fluids: IVNS 42cc/hr - Electrolytes: WNL - Nutrition: NPO for procedure today # Dispo - Admit to Med/Surg - Pain control Dennys Head MD PGY1 Visit type - Emergency Visit Emergency Visit: Yes ED Registration Date: 11/27/16 Care time: The patient presented to the Emergency Department on the above date and was hospitalized for further evaluation of their emergent condition. - New Patient This patient is new to me today: No - Critical Care Critical Care patient: No
--- NOTE | 2016-11-28 12:21 | PN ---
Progress Note, Physician History of Present Illness: resting in bed - Current Medication List Current Medications: Active Medications Amlodipine Besylate (Norvasc -) 5 mg PO DAILY [facility] Last Admin: 11/28/16 09:59 Dose: 5 mg Brimonidine Tartrate (Alphagan 0.2% -) 1 drop OU BID [facility] Last Admin: 11/28/16 10:02 Dose: 1 drop Citalopram Hydrobromide (Celexa -) 10 mg PO DAILY [facility] Last Admin: 11/28/16 10:00 Dose: 10 mg Docusate Sodium (Colace -) 100 mg PO BID [facility] Last Admin: 11/28/16 10:00 Dose: 100 mg Folic Acid (Folic Acid -) 1 mg PO DAILY [facility] Last Admin: 11/28/16 09:59 Dose: 1 mg Heparin Sodium (Porcine) (Heparin -) 5,000 unit SQ BID [facility] Last Admin: 11/28/16 10:00 Dose: 5,000 unit Hydrocortisone (Hytone 2.5% Lotion -) 1 applic TP BID [facility] Last Admin: 11/28/16 10:00 Dose: 1 applic Sodium Chloride (Normal Saline -) 1,000 mls @ 42 mls/hr IV ASDIR [facility] Latanoprost (Xalatan 0.005% Eye Drops -) 1 drop OU HS [facility] Last Admin: 11/27/16 22:05 Dose: 1 drop Morphine Sulfate (Morphine Injection -) 1 mg IVPUSH Q6H PRN PRN Reason: PAIN Last Admin: 11/28/16 01:33 Dose: 1 mg Risperidone (Risperdal -) 0.25 mg PO TID [facility] Last Admin: 11/28/16 05:58 Dose: 0.25 mg Risperidone (Risperdal -) 0.5 mg PO TID [facility] Last Admin: 11/28/16 05:58 Dose: 0.5 mg Timolol Maleate (Timoptic 0.5%) 1 drop OU BID [facility] Last Admin: 11/28/16 10:02 Dose: 1 drop - Objective Vital Signs: Vital Signs Temperature 98.4 F 11/28/16 10:00 Pulse Rate 94 H 11/28/16 10:00 Respiratory Rate 20 11/28/16 10:00 Blood Pressure 187/84 11/28/16 10:00 O2 Sat by Pulse Oximetry (%) 100 11/27/16 22:00 Constitutional: Yes: Well Nourished, No Distress, Calm Musculoskeletal: Yes: Other (RLE: Dressing with some saturation with blood. Dressing changed. No sign of infection. Compartments soft. NVID. No calf tenderness) Labs: INR, PTT INR 1.00 (0.82-1.09) 11/26/16 22:41 Assessment/Plan POD #1 s/p Right hip ORIF -Pain control -DVT prophaxis -PT WBAT -Dispo planning
--- NOTE | 2016-11-28 12:41 | PN ---
Teaching Attending Note Name of Resident: Dennys Head ATTENDING PHYSICIAN STATEMENT I saw and evaluated the patient. I reviewed the resident's note and discussed the case with the resident. I agree with the resident's findings and plan as documented. SUBJECTIVE: Patient appears comfortable. OBJECTIVE: Vital Signs Period Temp Pulse Resp BP Sys/Tena Pulse Ox Last 24 Hr 98 F-99.7 F 55-104 16-20 120-187/49-96 96-100 HEART: S1S2, RRR LUNGS: Clear ABDOMEN: Soft, non-distended, normal BS EXTREMITIES: No edema Current Medications Generic Name Dose Route Start Last Admin Trade Name Freq PRN Reason Stop Dose Admin Amlodipine Besylate 5 mg 11/28/16 10:00 11/28/16 09:59 Norvasc - PO 5 mg DAILY MAHESH Administration Brimonidine Tartrate 1 drop 11/27/16 22:00 11/28/16 10:02 Alphagan 0.2% - OU 1 drop BID MAHESH Administration Citalopram Hydrobromide 10 mg 11/28/16 10:00 11/28/16 10:00 Celexa - PO 10 mg DAILY MAHESH Administration Docusate Sodium 100 mg 11/27/16 22:00 11/28/16 10:00 Colace - PO 100 mg BID MAHESH Administration Folic Acid 1 mg 11/28/16 10:00 11/28/16 09:59 Folic Acid - PO 1 mg DAILY MAHESH Administration Heparin Sodium (Porcine) 5,000 unit 11/27/16 22:00 11/28/16 10:00 Heparin - SQ 5,000 unit BID MAHESH Administration Hydrocortisone 1 applic 11/27/16 22:00 11/28/16 10:00 Hytone 2.5% Lotion - TP 1 applic BID MAHESH Administration Sodium Chloride 1,000 mls @ 42 mls/hr 11/27/16 18:14 Normal Saline - IV ASDIR MAHESH Latanoprost 1 drop 11/27/16 22:00 11/27/16 22:05 Xalatan 0.005% Eye Drops - OU 1 drop HS MAHESH Administration Morphine Sulfate 1 mg 11/27/16 18:14 11/28/16 01:33 Morphine Injection - IVPUSH 1 mg Q6H PRN Administration PAIN Risperidone 0.25 mg 11/27/16 22:00 11/28/16 05:58 Risperdal - PO 0.25 mg TID MAHESH Administration Risperidone 0.5 mg 11/27/16 22:00 11/28/16 05:58 Risperdal - PO 0.5 mg TID MAHESH Administration Timolol Maleate 1 drop 11/27/16 22:00 11/28/16 10:02 Timoptic 0.5% OU 1 drop BID MAHESH Administration ASSESSMENT AND PLAN: This is an 81 year old woman with a history of dementia who presented from [facility] with right hip pain after a fall. 1. Right femoral neck fracture - s/p ORIF 11/27 - Pain control - Heparin subq for DVT prophylaxis - Physical therapy 2. Thrombocytopenia - Monitor platelets 3. Alzheimer dementia with depression and psychosis - Continue Celexa, Risperdal 4. HTN - Start Norvasc
--- NOTE | 2016-11-28 14:09 | EKG ---
Test Reason : Blood Pressure : / mmHG Vent. Rate : 084 BPM Atrial Rate : 084 BPM P-R Int : 154 ms QRS Dur : 086 ms QT Int : 372 ms P-R-T Axes : 064 033 041 degrees QTc Int : 439 ms NORMAL SINUS RHYTHM BASELINE ARTIFACTS. NONSPECIFIC ST ABNORMALITY NO PREVIOUS ECGS AVAILABLE REPEAT EKG IF CLINICALLY INDICATED Confirmed by BRANDON YODER MD ([id number]) on 11/28/2016 2:09:06 PM Referred By: Confirmed By:BRANDON YODER MD
--- NOTE | 2016-11-28 14:21 | PN ---
Progress Note (short form) - Note Progress Note: Anesthesiology Post-op POD#1 s/p left breast mastectomy,axillary node dissection with reconstruction and right breast reduction under GA with post-op dilaudid HAND ROUTER OPERATOR. Pt. feeling well but does state that when she moves, her pain is close to 10/10 on the left side. She has been using the HAND ROUTER OPERATOR with reasonable relief and is hesitant to stop it at this time. Will reevaluate tomorrow and possibly transition to PO meds at that time. Continue HAND ROUTER OPERATOR for today. VSS.
--- NOTE | 2016-11-28 14:26 | PN ---
Progress Note (short form) - Note Progress Note: ANESTHESIOLOGY POST-OP POD#1 s/p right hip cannulated screw placement under spinal anesthesia. Per RN, pt. has mild pain but this has been managed with meds. She is able to move legs , no residual paresthesia. VSS.
[2016-11-28] MEDS: SODIUM CHLORIDE 1,000 ML IV SCH (17:30)
[2016-11-28] MEDS: LATANOPROST 0.005% OPHTH SOLN 2.5ML BOTTLE OU SCH (21:22)
[2016-11-29] MEDS: risperiDONE 0.25 MG TABLET (FP) PO SCH ×3 (05:53→21:51)
[2016-11-29] MEDS: risperiDONE 0.5 MG TABLET (FP) PO SCH ×3 (05:53→21:51)
[2016-11-29 08:39] LABS: MCH 36.3 pg (25.7-33.7); MCHC 34.6 g/dl (32.0-36.0); MEAN CELL VOLUME 104.8 fl (80-96); MEAN PLT VOLUME 8.2 fl (7.5-11.1); PLATELET COUNT 83 K/MM3 (134-434); RDW 12.5 % (11.6-15.6); WHITE BLOOD COUNT 7.9 K/mm3 (4.0-10.0)
[2016-11-29] MEDS ORDERED: PT OWN MED DRAWER 7, Y5N ONE ×3 (09:55→21:25)
[2016-11-29] MEDS: CITALOPRAM HYDROBROMIDE 10 MG TABLET (FP) PO SCH (09:57)
[2016-11-29] MEDS: BRIMONIDINE TARTRATE 0.2% OPHTHALMIC 5 ML BOTTLE OU SCH ×2 (09:57→21:58)
[2016-11-29] MEDS: HEPARIN NA (PORCINE) 5,000 UNITS/ML 1ML VIAL SQ SCH (09:58)
[2016-11-29] MEDS: FOLIC ACID 1 MG TABLET (FP) PO SCH (09:58)
[2016-11-29] MEDS: HYDROCORTISONE 2.5% LOTION - 1 BOTTLE TP SCH ×2 (09:58→23:15)
[2016-11-29] MEDS: DOCUSATE SODIUM 100 MG CAPSULE (FP) PO SCH ×2 (09:58→21:54)
[2016-11-29] MEDS: TIMOLOL 0.5% OPHTHALMIC SOL 5 ML BOTTLE OU SCH ×2 (09:59→21:58)
[2016-11-29] MEDS: amLODIPine BESYLATE 5 MG TABLET (FP) PO SCH (09:59)
--- NOTE | 2016-11-29 10:21 | PN ---
Physical Exam: SUBJECTIVE: Patient seen and examined. Sleeping comfortably in bed. She falls back asleep quickly when awakened. PT not done yesterday because she was sleeping. OBJECTIVE: Vital Signs Period Temp Pulse Resp BP Sys/Tena Pulse Ox Last 24 Hr 97.6 F-98.4 F 64-78 20-20 142-152/69-80 GENERAL: The patient is sleepy and confused, in no acute distress. LUNGS: Breath sounds equal, clear to auscultation bilaterally, no wheezes, no crackles, no accessory muscle use. HEART: Regular rate and rhythm, S1, S2 without murmur, rub or gallop. ABDOMEN: Soft, nontender, nondistended, normoactive bowel sounds, no guarding, no rebound, no hepatosplenomegaly, no masses. EXTREMITIES: 2+ pulses, warm, well-perfused, no edema. Laboratory Results - last 24 hr 11/29/16 07:15 WBC 7.9 RBC 3.30 L Hgb 12.0 Hct 34.6 MCV 104.8 H MCH 36.3 H MCHC 34.6 RDW 12.5 Plt Count 83 L MPV 8.2 Active Medications Generic Name Dose Route Start Last Admin Trade Name Freq PRN Reason Stop Dose Admin Amlodipine Besylate 5 mg 11/28/16 10:00 11/29/16 09:59 Norvasc - PO 5 mg DAILY MAHESH Administration Brimonidine Tartrate 1 drop 11/27/16 22:00 11/29/16 09:57 Alphagan 0.2% - OU 1 drop BID MAHESH Administration Citalopram Hydrobromide 10 mg 11/28/16 10:00 11/29/16 09:57 Celexa - PO 10 mg DAILY MAHESH Administration Docusate Sodium 100 mg 11/27/16 22:00 11/29/16 09:58 Colace - PO 100 mg BID MAHESH Administration Folic Acid 1 mg 11/28/16 10:00 11/29/16 09:58 Folic Acid - PO 1 mg DAILY MAHESH Administration Heparin Sodium (Porcine) 5,000 unit 11/27/16 22:00 11/29/16 09:58 Heparin - SQ 5,000 unit BID MAHESH Administration Hydrocortisone 1 applic 11/27/16 22:00 11/29/16 09:58 Hytone 2.5% Lotion - TP 1 applic BID MAHESH Administration Sodium Chloride 1,000 mls @ 42 mls/hr 11/27/16 18:14 11/28/16 17:30 Normal Saline - IV 42 mls/hr ASDIR MAHESH Administration Latanoprost 1 drop 11/27/16 22:00 11/28/16 21:22 Xalatan 0.005% Eye Drops - OU 1 drop HS MAHESH Administration Morphine Sulfate 1 mg 11/27/16 18:14 11/28/16 01:33 Morphine Injection - IVPUSH 1 mg Q6H PRN Administration PAIN Risperidone 0.25 mg 11/27/16 22:00 11/29/16 05:53 Risperdal - PO 0.25 mg TID MAHESH Administration Risperidone 0.5 mg 11/27/16 22:00 11/29/16 05:53 Risperdal - PO 0.5 mg TID MAHESH Administration Timolol Maleate 1 drop 11/27/16 22:00 11/29/16 09:59 Timoptic 0.5% OU 1 drop BID MAHESH Administration ASSESSMENT/PLAN: This is an 81 year old woman with a history of dementia who presented from [facility] with right hip pain after a fall. 1. Right femoral neck fracture - s/p ORIF 11/27 - Pain control - Hold heparin secondary to thrombocytopenia - Physical therapy - Plan for return to [facility] 2. Thrombocytopenia - Platelets decreased to 83,000 today - Hold heparin subq 3. Alzheimer dementia with depression and psychosis - Continue Celexa, Risperdal 4. HTN -Continue Norvasc Visit type - Emergency Visit Emergency Visit: Yes ED Registration Date: 11/27/16 Care time: The patient presented to the Emergency Department on the above date and was hospitalized for further evaluation of their emergent condition. - New Patient This patient is new to me today: No - Critical Care Critical Care patient: No - Discharge Referral Referred to [facility] Med P.C.: No
--- NOTE | 2016-11-29 13:25 | PN ---
Progress Note, Physician History of Present Illness: She feels well. Sitting up in a chair today. No pain at rest. - Current Medication List Current Medications: Active Medications Amlodipine Besylate (Norvasc -) 5 mg PO DAILY [facility] Last Admin: 11/29/16 09:59 Dose: 5 mg Brimonidine Tartrate (Alphagan 0.2% -) 1 drop OU BID [facility] Last Admin: 11/29/16 09:57 Dose: 1 drop Citalopram Hydrobromide (Celexa -) 10 mg PO DAILY [facility] Last Admin: 11/29/16 09:57 Dose: 10 mg Docusate Sodium (Colace -) 100 mg PO BID [facility] Last Admin: 11/29/16 09:58 Dose: 100 mg Folic Acid (Folic Acid -) 1 mg PO DAILY [facility] Last Admin: 11/29/16 09:58 Dose: 1 mg Hydrocortisone (Hytone 2.5% Lotion -) 1 applic TP BID [facility] Last Admin: 11/29/16 09:58 Dose: 1 applic Sodium Chloride (Normal Saline -) 1,000 mls @ 42 mls/hr IV ASDIR [facility] Last Admin: 11/28/16 17:30 Dose: 42 mls/hr Latanoprost (Xalatan 0.005% Eye Drops -) 1 drop OU HS [facility] Last Admin: 11/28/16 21:22 Dose: 1 drop Morphine Sulfate (Morphine Injection -) 1 mg IVPUSH Q6H PRN PRN Reason: PAIN Last Admin: 11/28/16 01:33 Dose: 1 mg Risperidone (Risperdal -) 0.25 mg PO TID [facility] Last Admin: 11/29/16 05:53 Dose: 0.25 mg Risperidone (Risperdal -) 0.5 mg PO TID [facility] Last Admin: 11/29/16 05:53 Dose: 0.5 mg Timolol Maleate (Timoptic 0.5%) 1 drop OU BID [facility] Last Admin: 11/29/16 09:59 Dose: 1 drop - Objective Vital Signs: Vital Signs Temperature 98.0 F 11/29/16 08:00 Pulse Rate 90 11/29/16 08:00 Respiratory Rate 20 11/29/16 08:00 Blood Pressure 142/76 11/29/16 08:00 O2 Sat by Pulse Oximetry (%) 99 11/29/16 08:00 Constitutional: Yes: Well Nourished, No Distress, Calm Musculoskeletal: Yes: Other (Dressing CDI No sign of infection Calf soft, NT, negative marichuy's sign Compartments soft NVID) Labs: CBC, BMP 11/29/16 07:15 INR, PTT INR 1.00 (0.82-1.09) 11/26/16 22:41 Assessment/Plan POD #2 s/p Right Hip ORIF -PT OOB WBAT -Pain control -DVT Prophaxis -Dispo planning
[2016-11-29] MEDS: SODIUM CHLORIDE 1,000 ML IV SCH (17:28)
[2016-11-29] MEDS: LATANOPROST 0.005% OPHTH SOLN 2.5ML BOTTLE OU SCH (21:58)
[2016-11-30] MEDS ORDERED: PT OWN MED DRAWER 7, Y5N ONE ×4 (06:14→20:10)
[2016-11-30] MEDS: risperiDONE 0.5 MG TABLET (FP) PO SCH ×3 (06:46→20:59)
[2016-11-30] MEDS: risperiDONE 0.25 MG TABLET (FP) PO SCH ×3 (06:46→20:59)
[2016-11-30 07:53] LABS: MCH 35.9 pg (25.7-33.7); MCHC 34.5 g/dl (32.0-36.0); MEAN CELL VOLUME 104.1 fl (80-96); PLATELET COUNT 86 K/MM3 (134-434); RDW 12.8 % (11.6-15.6); WHITE BLOOD COUNT 6.8 K/mm3 (4.0-10.0)
[2016-11-30 08:24] LABS: ANION GAP 7 (8-16); CALCIUM 8.6 mg/dL (8.5-10.1); CO2 32 mmol/L (21-32); CREATININE 0.6 mg/dL (0.55-1.02); GLUCOSE,RANDOM 106 mg/dL (74-106)
[2016-11-30] MEDS: CITALOPRAM HYDROBROMIDE 10 MG TABLET (FP) PO SCH (09:55)
[2016-11-30] MEDS: TIMOLOL 0.5% OPHTHALMIC SOL 5 ML BOTTLE OU SCH ×2 (09:55→21:00)
[2016-11-30] MEDS: DOCUSATE SODIUM 100 MG CAPSULE (FP) PO SCH ×2 (09:55→21:01)
[2016-11-30] MEDS: amLODIPine BESYLATE 5 MG TABLET (FP) PO SCH (09:55)
[2016-11-30] MEDS: FOLIC ACID 1 MG TABLET (FP) PO SCH (09:55)
[2016-11-30] MEDS: HYDROCORTISONE 2.5% LOTION - 1 BOTTLE TP SCH ×2 (09:56→21:04)
[2016-11-30] MEDS: BRIMONIDINE TARTRATE 0.2% OPHTHALMIC 5 ML BOTTLE OU SCH ×2 (09:56→21:01)
--- NOTE | 2016-11-30 10:14 | PN ---
Physical Exam: SUBJECTIVE: Patient seen and examined. She is awake and alert. She denies pain. OBJECTIVE: Vital Signs Period Temp Pulse Resp BP Sys/Tena Pulse Ox Last 24 Hr 97.4 F-99.2 F 70-114 20-20 117-140/59-76 98 GENERAL: The patient is awake, in no acute distress. LUNGS: Breath sounds equal, clear to auscultation bilaterally, no wheezes, no crackles, no accessory muscle use. HEART: Regular rate and rhythm, S1, S2 without murmur, rub or gallop. ABDOMEN: Soft, nontender, nondistended, normoactive bowel sounds, no guarding, no rebound, no hepatosplenomegaly, no masses. EXTREMITIES: 2+ pulses, warm, well-perfused, no edema. Laboratory Results - last 24 hr 11/30/16 11/30/16 06:00 06:00 WBC 6.8 RBC 3.25 L Hgb 11.7 Hct 33.8 MCV 104.1 H MCH 35.9 H MCHC 34.5 RDW 12.8 Plt Count 86 L MPV 8.0 Sodium 141 Potassium 3.4 L Chloride 102 Carbon Dioxide 32 Anion Gap 7 L BUN 14 Creatinine 0.6 D Random Glucose 106 D Calcium 8.6 Active Medications Generic Name Dose Route Start Last Admin Trade Name Freq PRN Reason Stop Dose Admin Amlodipine Besylate 5 mg 11/28/16 10:00 11/30/16 09:55 Norvasc - PO 5 mg DAILY MAHESH Administration Brimonidine Tartrate 1 drop 11/27/16 22:00 11/30/16 09:56 Alphagan 0.2% - OU 1 drop BID MAHESH Administration Citalopram Hydrobromide 10 mg 11/28/16 10:00 11/30/16 09:55 Celexa - PO 10 mg DAILY MAHESH Administration Docusate Sodium 100 mg 11/27/16 22:00 11/30/16 09:55 Colace - PO 100 mg BID MAHESH Administration Folic Acid 1 mg 11/28/16 10:00 11/30/16 09:55 Folic Acid - PO 1 mg DAILY MAHESH Administration Hydrocortisone 1 applic 11/27/16 22:00 11/30/16 09:56 Hytone 2.5% Lotion - TP 1 applic BID MAHESH Administration Sodium Chloride 1,000 mls @ 42 mls/hr 11/27/16 18:14 11/29/16 17:28 Normal Saline - IV Not Given ASDIR MAHESH Latanoprost 1 drop 11/27/16 22:00 11/29/16 21:58 Xalatan 0.005% Eye Drops - OU 1 drop HS [facility]HESH Administration Morphine Sulfate 1 mg 11/27/16 18:14 11/28/16 01:33 Morphine Injection - IVPUSH 1 mg Q6H PRN Administration PAIN Risperidone 0.25 mg 11/27/16 22:00 11/30/16 06:46 Risperdal - PO 0.25 mg TID MAHESH Administration Risperidone 0.5 mg 11/27/16 22:00 11/30/16 06:46 Risperdal - PO 0.5 mg TID MAHESH Administration Timolol Maleate 1 drop 11/27/16 22:00 11/30/16 09:55 Timoptic 0.5% OU 1 drop BID MAHESH Administration ASSESSMENT/PLAN: This is an 81 year old woman with a history of dementia who presented from [facility] with right hip pain after a fall. 1. Right femoral neck fracture - s/p ORIF 11/27 - Pain control - Heparin held secondary to thrombocytopenia - Continue physical therapy - Plan for return to [facility] 2. Thrombocytopenia - Platelets stable - Heparin subq held 3. Alzheimer dementia with depression and psychosis - Continue Celexa, Risperdal 4. HTN -Continue Norvasc 5. Hypokalemia - Replete potassium Visit type - Emergency Visit Emergency Visit: Yes ED Registration Date: 11/27/16 Care time: The patient presented to the Emergency Department on the above date and was hospitalized for further evaluation of their emergent condition. - New Patient This patient is new to me today: No - Critical Care Critical Care patient: No - Discharge Referral Referred to [facility] No
[2016-11-30] MEDS ORDERED: POTASSIUM CHLORIDE TABS 20 MEQ TABLET.ER (FP) PO ONE (11:15)
[2016-11-30] MEDS: SODIUM CHLORIDE 1,000 ML IV SCH (18:03)
[2016-11-30] MEDS: LATANOPROST 0.005% OPHTH SOLN 2.5ML BOTTLE OU SCH (21:01)
[2016-11-30] MEDS ORDERED: morphine CARPU-JECT 2 MG/1 ML DISP.SYRIN IVPUSH PRN (22:46)
[2016-12-01] MEDS: risperiDONE 0.5 MG TABLET (FP) PO SCH ×2 (05:50→14:56)
[2016-12-01] MEDS: risperiDONE 0.25 MG TABLET (FP) PO SCH ×2 (05:51→14:56)
[2016-12-01 09:32] LABS: ANION GAP 8 (8-16); CALCIUM 8.7 mg/dL (8.5-10.1); CO2 30 mmol/L (21-32); CREATININE 0.7 mg/dL (0.55-1.02); GLUCOSE,RANDOM 95 mg/dL (74-106)
[2016-12-01] MEDS ORDERED: PT OWN MED DRAWER 7, Y5N ONE ×2 (10:40→14:51)
[2016-12-01] MEDS: DOCUSATE SODIUM 100 MG CAPSULE (FP) PO SCH (10:41)
[2016-12-01] MEDS: TIMOLOL 0.5% OPHTHALMIC SOL 5 ML BOTTLE OU SCH (10:42)
[2016-12-01] MEDS: CITALOPRAM HYDROBROMIDE 10 MG TABLET (FP) PO SCH (10:43)
[2016-12-01] MEDS: amLODIPine BESYLATE 5 MG TABLET (FP) PO SCH (10:43)
[2016-12-01] MEDS: FOLIC ACID 1 MG TABLET (FP) PO SCH (10:44)
[2016-12-01] MEDS: BRIMONIDINE TARTRATE 0.2% OPHTHALMIC 5 ML BOTTLE OU SCH (10:44)
[2016-12-01] MEDS: HYDROCORTISONE 2.5% LOTION - 1 BOTTLE TP SCH (10:46)
[2016-12-01] MEDS ORDERED: ACETAMINOPHEN 325 MG TABLET (FP) PO PRN (14:09)
[2016-12-01] MEDS ORDERED: oxyCODONE HCL 5 MG TABLET PO PRN (14:09)
[2016-12-01] MEDS ORDERED: POTASSIUM CHLORIDE ORAL LIQUID 20 MEQ/15 ML PO ONE (14:57)
--- NOTE | 2016-12-01 14:57 | PN ---
Teaching Attending Note Name of Resident: Dennys Head ATTENDING PHYSICIAN STATEMENT I saw and evaluated the patient. I reviewed the resident's note and discussed the case with the resident. I agree with the resident's findings and plan as documented. SUBJECTIVE:asymptomatic. denies CP, SOB, fever, chills, N/V/C/D OBJECTIVE: Last Vital Signs Temp Pulse Resp BP Pulse Ox 97.6 F 101 H 18 130/69 95 12/01/16 14:50 12/01/16 14:50 12/01/16 08:00 12/01/16 14:50 12/01/16 09:00 General NAD A&O x1 (self only) CV S1 S2 + lungs CTA B?L no wheezing/rales/rhonchi Abdomen soft NT/ND Extremities no pedal edema ASSESSMENT AND PLAN: 81 yo F with PMH dementia who presented from [facility] on [address] with right hip pain after a fall. 1. Right femoral neck fracture- s/p ORIF 11/27. pain is controlled. plan to send to [facility] when bed available. heparin sq for DVT ppx is being held for thrombocytopenia. has remained stable. will d/w ortho about continuing to hold vs asa therapy. 2. Thrombocytopenia- stable. will d/w ortho about dvt ppx 3. Alzheimer dementia with depression and psychosis- Continue Celexa, Risperdal 4. HTN-Continue Norvasc 5. Hypokalemia- kcl po 6. d/c planning to [facility] when bed available.
--- NOTE | 2016-12-01 16:13 | DS ---
Physical Exam: SUBJECTIVE: Patient seen and examined at bed side. she is sitting comfortable in her seat. Post op day 4 S/p ORIF . She denies any fever , chills D/C/N/V. She is stable and will be discharge to rehab facility. OBJECTIVE: Vital Signs Period Temp Pulse Resp BP Sys/Tena Pulse Ox Last 24 Hr 97.6 F-98 F 60-101 18-20 128-160/64-73 95-96 PHYSICAL EXAM GENERAL: The patient is awake, in no acute distress. LUNGS: Breath sounds equal, clear to auscultation bilaterally, no wheezes, no crackles, no accessory muscle use. HEART: Regular rate and rhythm, S1, S2 without murmur, rub or gallop. ABDOMEN: Soft, nontender, nondistended, normoactive bowel sounds, no guarding, no rebound, no hepatosplenomegaly, no masses. EXTREMITIES: 2+ pulses, warm, well-perfused, no edema. LABS Laboratory Results - last 24 hr 12/01/16 07:30 Sodium 143 Potassium 3.5 Chloride 105 Carbon Dioxide 30 Anion Gap 8 BUN 15 Creatinine 0.7 Random Glucose 95 Calcium 8.7 HOSPITAL COURSE: Date of Admission:11/27/16 Date of Discharge: 12/01/16 Patient is 81 Year old female with PMH dementia who presented from [facility] on [address] with right hip pain after a fall. Imaging revealed femoral neck fracture and orthopedics operated on her on 11/27 . post op 4 days she afebrile, tolerating pain with pain medications and stable to be discharged rehab facility. Orthopedics recommended Aspirin for DVT prophylaxis but due to patient allergies history and due to fall risk and low platelet count , no DVT prophylaxis is given at this time. patient had throbocytopenia which is slowly resolving. She has a history of chronic Alzheimer dementia , will continue with Celexa, Risperdal. Her HTN was controlled with Norvasc. She should continue with current dose of Norvasc. She had Hypokalemia which resolved with PO KCL. Patient is medically stable for discharge for rehab facility. Discharge Summary Reason For Visit: ABNORMALITY OF FEMUR Current Active Problems Femoral neck fracture (Acute) Hypokalemia (Acute) Thrombocytopenia (Acute) Condition: Stable - Instructions Diet, Activity, Other Instructions: You will need to follow up with the orthopedic doctor Rafa Wills within one week Follow up with your primary care physician within one week Orthopedic surgeon recommend here to take Aspirin however due to allergic history to Aspirin and due to her age and risk factors no prophylaxis at this time You can resume your regular diet as tolerated weight bearing activity as tolerated Please follow fall precautions Resume all home meds as directed if your symptoms worsen or you develp fever please return to ED or call your Primary care physichian Referrals: Johann Craig MD [Staff Physician] - Disposition: [facility] - Home Medications Comprehensive Discharge Medication List: Ambulatory Orders Acetaminophen [Tylenol .Extra-Strength -] 1,000 mg PO BID PRN 11/27/16 Brimonidine Tartrate/Timolol [Combigan 0.2%-0.5% Eye Drops] 1 drop OU BID Citalopram Hydrobromide [Celexa -] 10 mg PO DAILY 11/27/16 Cyanocobalamin Vit B-12 Inj. [Vitamin B12 Injection -] 1 ml IM Q30D 11/27/16 Folic Acid 1 tab PO DAILY 11/27/16 Hydrocortisone 2.5% Lotion [Hytone 2.5% Lotion -] 1 applic TD DAILY 11/27/16 Latanoprost 0.005% Eye Drops [Xalatan 0.005% Eye Drops -] 1 drop OU HS 11/27/16 Oxycodone HCl/Acetaminophen [Percocet 5-325 mg Tablet] 1 tab PO TID PRN Risperidone [Risperdal -] 0.25 mg PO TID 11/27/16 Risperidone [Risperdal -] 0.5 mg PO TID 11/27/16 Docusate Sodium [Colace -] 100 mg PO BID #60 cap 12/01/16 Oxycodone HCl [Roxicodone -] 5 mg PO Q6H PRN #30 tablet MDD 4 12/01/16 - Discharge Referral Referred to [facility] No
[2016-12-01 17:19] VITALS: BP 127/69; PULSE 86; TEMP 98.6
== END 2016-12-01 18:10 | DRG 481 ==
LOC: JER 21:52 → JERBED 11-27 01:34 → UNDOADMIN 11-27 01:39 → JERBED 11-27 01:39 → J6S 11-27 02:19
PROVIDERS: ADMIT Internal Medicine; ATTEND Internal Medicine
PROC: 0QH634Z Insertion of Internal Fixation Device into Right Upper Femur, Percutaneous Approach (ICD-10-PCS; principal; 2016-11-27 15:00)
DX: S72.011A Unspecified intracapsular fracture of right femur, initial encounter for closed fracture (principal); D61.9 Aplastic anemia, unspecified; F02.81 Dementia in other diseases classified elsewhere, unspecified severity, with behavioral disturbance; J98.11 Atelectasis; W01.0XXA Fall on same level from slipping, tripping and stumbling without subsequent striking against object, initial encounter; Y93.89 Activity, other specified; Y92.128 Other place in nursing home as the place of occurrence of the external cause; Y99.8 Other external cause status; E87.6 Hypokalemia; G30.9 Alzheimer's disease, unspecified; R09.02 Hypoxemia; D69.6 Thrombocytopenia, unspecified; F32.9 Major depressive disorder, single episode, unspecified; D72.829 Elevated white blood cell count, unspecified
CPT/HCPCS: 36415; 71020-TC; 72192-TC; 73523-TC; 76000-TC; 80048; 80053; 82553; 83880; 84484; 85025; 85027; 85610; 86850; 86900; 86901; 93005; 93010; 94760; 97116-GP; 97161-GP; 99282-25; J1644

== ENCOUNTER 2018-01-14 12:45 | Emergency (ER) | payer OTHER ==
[2018-01-14 13:03] VITALS: BP 123/72; PULSE 83; TEMP 98.8; BMI 23.3
[2018-01-14] MEDS ORDERED: SODIUM CHLORIDE 0.9% 1000 ML INFUS.BAG IV STA (13:44)
--- NOTE | 2018-01-14 14:10 | PDOC ---
History of Present Illness - General History Source: Group Home Records, Other ([facility] ) Exam Limitations: Dementia - History of Present Illness Initial Comments: 01/14/18 14:09 82 y/o F hx of depression, R hip fracture s/p ORIF 11/2016, dementia, aplastic anemia, trigeminal neuralgia, HTN, osteoporosis, glaucoma presented from [facility] with fever. History is limited but per information provided from prison papers and [facility], patient had fever (unknown temperature) today, was diaphoretic and hypertensive (160/111). She was given Tylenol (uncertain dosage ) and her vitals were taken after receiving Tylenol (during which time she was no longer febrile). Patient was started on Augmentin 01/10/18 for L buttock abscess. 01/14/18 14:11 01/14/18 14:30 <April Palma - Last Filed: 01/14/18 19:07> <Megan Velarde - Last Filed: 01/17/18 08:42> - General Chief Complaint: SIRS, Suspected/Possible Stated Complaint: FEVER Time Seen by Provider: 01/14/18 13:32 Past History - Travel Traveled outside of the country in the last 30 days: No - Past Medical History Anemia: Yes COPD: No Dementia: Yes Hx Glaucoma: Yes HTN: Yes (no meds) Psychiatric Problems: Yes Other medical history: uti - Suicide/Smoking/Psychosocial Hx Smoking History: Never smoked Have you smoked in the past 12 months: No Information on smoking cessation initiated: No Hx Alcohol Use: No Drug/Substance Use Hx: No Substance Use Type: None Hx Substance Use Treatment: No <April Palma - Last Filed: 01/14/18 19:07> <Megan Velarde - Last Filed: 01/17/18 08:42> - Past Medical History Allergies/Adverse Reactions: Allergies Allergy/AdvReac Type Severity Reaction Status Date / Time aspirin Allergy Mild Verified 01/14/18 12:56 Home Medications: Ambulatory Orders Amoxicillin/Potassium Clav [Augmentin 875-125 Tablet] 1 each PO BID 01/14/18 Cyanocobalamin Vit B-12 Inj. [Redisol] 1,000 mcg IM ASDIR 01/14/18 Divalproex [Depakote -] 125 mg PO BID 01/14/18 Docusate Sodium [Colace] 100 mg PO BID 01/14/18 Escitalopram Oxalate [Lexapro -] 20 mg PO DAILY 01/14/18 Folic Acid 1 mg PO DAILY 01/14/18 Magnesium Hydroxide [Milk of Magnesia] 400 mg PO DAILY 01/14/18 Mirtazapine [Remeron -] 30 mg PO DAILY 01/14/18 Review of Systems - Review of Systems Able to Perform ROS?: No (Dementia) <April Palma - Last Filed: 01/14/18 19:07> *Physical Exam - Vital Signs Last Vital Signs Temp Pulse Resp BP Pulse Ox 98.8 F 83 18 123/72 93 L 01/14/18 12:57 01/14/18 12:57 01/14/18 12:57 01/14/18 12:57 01/14/18 12:57 - Physical Exam General Appearance: Yes: Other (Appears in NAD) HEENT: positive: Other (Slightly dry mucous membranes) Neck: positive: Trachea midline Respiratory/Chest: positive: Lungs Clear, Normal Breath Sounds. negative: Respiratory Distress, Accessory Muscle Use Cardiovascular: positive: Regular Rhythm, Regular Rate Vascular Pulses: Femoral (R): 4+, Femoral (L): 4+, Carotid (R): 4+, Carotid (L) : 4+, Dorsalis-Pedis (R): 4+, Doralis-Pedis (L): 4+ Gastrointestinal/Abdominal: positive: Normal Bowel Sounds. negative: Tender, Distended, Guarding, Rebound, Tenderness, Mass Extremity: negative: Pedal Edema, Swelling, Calf Tenderness Integumentary: positive: Other (No abscess noted on R buttock; L buttock with around 2 cm superificial ulcer, no surrounding erythema or drainage noted, no fluctuance from site) Neurologic: positive: Disoriented (Patient is at her baseline mental status per resistor inspector care) <April Palma - Last Filed: 01/14/18 19:07> - Vital Signs Last Vital Signs Temp Pulse Resp BP Pulse Ox 98.8 F 83 18 123/72 93 L 01/14/18 12:57 01/14/18 12:57 01/14/18 12:57 01/14/18 12:57 01/14/18 12:57 <Megan Velarde - Last Filed: 01/17/18 08:42> Heart Score/ECG Review #1 ECG reviewed & interpreted by me at: 15:42 (NSR at 83 bpm, no ectopy, no ST-T changes, slight T wave flattening lead III) <April Palma - Last Filed: 01/14/18 19:07> ED Treatment Course - LABORATORY CBC & Chemistry Diagram: 01/14/18 15:47 01/14/18 18:09 - RADIOLOGY Radiology Studies Ordered: Category Date Time Status CHEST X-RAY PORTABLE* [RAD] Stat Radiology 01/14/18 13:44 Ordered Radiograph Interpretation: CXR shows no evidence of PNA 01/14/18 15:47 <April Palma - Last Filed: 01/14/18 19:07> - LABORATORY CBC & Chemistry Diagram: 01/14/18 15:47 01/14/18 18:09 - ADDITIONAL ORDERS Additional order review: 01/14/18 15:47 Blood Culture - Preliminary Blood - Peripheral Venous Pending Organism 01/14/18 15:47 Blood Culture - Preliminary Blood - Peripheral Venous NO GROWTH OBTAINED AFTER 48 HOURS, INCUBATION TO CONTINUE FOR 3 DAYS. 01/14/18 16:30 Urine Culture - Final Urine - Urine Clean Catch NO GROWTH OBTAINED 01/14/18 17:20 Influenza Types A,B Antigen - Final Nasopharyngeal Swab - Final 01/14/18 15:47 RBC 3.57 L MCV 105.6 H MCHC 33.7 RDW 13.1 MPV 8.0 Neutrophils % 53.3 D Lymphocytes % 33.6 D Monocytes % 11.7 H Eosinophils % 1.3 D Basophils % 0.1 - Medications Given in the ED: ED Medications Discontinued Medications Generic Name Dose Route Start Last Admin Trade Name Freq PRN Reason Stop Dose Admin Sodium Chloride 1,973 ml 01/14/18 13:44 01/14/18 18:13 Normal Saline - 30 ml/kg (1973 ml) 01/14/18 13:45 Not Given IV ONCE STA <Megan Velarde - Last Filed: 01/17/18 08:42> Medical Decision Making - Medical Decision Making 82 y/o F hx of dementia, recent diagnosis of L buttock abscess on Augmentin presents with fever at SNF. Patient at her mental baseline and not confused. Source of infection does not appear to be her abscess as site not purulent, fluctuant; appears as superficial pressure ulcer. Will consider other causes of fever including PNA or UTI. Consider ACS as patient was diaphoretic and hypertensive at time, but less suspicious Will get basic labs, EKG, troponin, CXR, UA, UCx, lactate, blood culture Ordered for 1 L of IVF bolus (patient does not appear fluid overloaded and with no hx of CHF) 01/14/18 14:22 01/14/18 01/14/18 01/14/18 16:30 15:47 15:47 PT with INR INR PTT (Actin FS) VBG pH POC VBG pCO2 POC VBG pO2 Mixed VBG HCO3 Sodium Cancelled Potassium Cancelled Chloride Cancelled Carbon Dioxide Cancelled Anion Gap Cancelled BUN Cancelled Creatinine Cancelled Creat Clearance w eGFR Cancelled Random Glucose Cancelled Lactic Acid 0.9 Calcium Cancelled Total Bilirubin Cancelled AST Cancelled ALT Cancelled Alkaline Phosphatase Cancelled Total Protein Cancelled Albumin Cancelled Urine Color Yellow Urine Appearance Clear Urine pH 6.0 Ur Specific [place] 1.026 Urine Protein Negative Urine Glucose (UA) Negative Urine Ketones Trace H Urine Blood Negative Urine Nitrite Negative Urine Bilirubin Negative Urine Urobilinogen 2.0 H Ur Leukocyte Esterase Negative 01/14/18 01/14/18 15:47 15:47 PT with INR 11.40 INR 0.97 PTT (Actin FS) 25.5 VBG pH 7.41 POC VBG pCO2 49.5 POC VBG pO2 45.1 Mixed VBG HCO3 30.8 H Sodium Potassium Chloride Carbon Dioxide Anion Gap BUN Creatinine Creat Clearance w eGFR Random Glucose Lactic Acid Calcium Total Bilirubin AST ALT Alkaline Phosphatase Total Protein Albumin Urine Color Urine Appearance Urine pH Ur Specific [place] Urine Protein Urine Glucose (UA) Urine Ketones Urine Blood Urine Nitrite Urine Bilirubin Urine Urobilinogen Ur Leukocyte Esterase 01/14/18 15:47 RBC 3.57 L MCV 105.6 H MCHC 33.7 RDW 13.1 MPV 8.0 Neutrophils % 53.3 D Lymphocytes % 33.6 D Monocytes % 11.7 H Eosinophils % 1.3 D Basophils % 0.1 Labs reviewed; chem and lactate hemolyzed UA was negative for infection Patient was re-evaluated and in NAD Will also send flu swab Repeat vital signs pending 01/14/18 17:23 Repeat vitals: BP 155/88 Pulse 93 RR 20 Pulse ox 94% RA Temp 99.5 (Rectal) Flu swab, chem and lactate pending 01/14/18 17:58 Labs show unremarkable CMP, lactate normal Flu swab was negative Patient to be discharged back to SNF Discussed with attending Dr. Julius Blas 01/14/18 18:56 Spoke to supervising nurse, Brynn Koch, from patient's SNF to explain results of labs and that patient will be sent back to SNF. Unable to reach patient's emergency contact to also endorse information 01/14/18 19:16 <April Palma - Last Filed: 01/14/18 19:07> *DC/Admit/Observation/Transfer - Discharge Dispostion Decision to Admit order: No <April Palma - Last Filed: 01/14/18 19:07> - Attestations Physician Attestion: I reviewed the case with the mid-level practitioner and agree with the mid- level practitioner's assessment, diagnosis and disposition. <Megan Velarde - Last Filed: 01/17/18 08:42> Diagnosis at time of Disposition: Fever Qualifiers: Fever type: unspecified Qualified Code(s): R50.9 - Fever, unspecified - Discharge Dispostion Disposition: INTERMEDIATE FACILITY Condition at time of disposition: Good - Referrals Referrals: Garland Gorman MD [Primary Care Provider] - - Patient Instructions Printed Discharge Instructions: DI for Fever (Symptom) -- Adult Additional Instructions: You were seen here for fever Your labs were unremarkable with no evidence of urine infection noted Your chest x-ray was also negative You were also negative for flu It is possibly you may small viral syndrome Recommend hydration, rest and Tylenol as needed If you have any worsening symptoms including fever, cough, abdominal pain, chest pain, shortness of breath, worsening of wound on your buttock (such as increased drainage, discharge, redness, streaking from site), weakness, confusion or other concerning symptoms, please return to the ED - Post Discharge Activity
[2018-01-14 16:00] LABS: BASO % 0.1 % (0-2.0); EOS % 1.3 % (0-4.5); HEMATOCRIT 37.7 % (32.4-45.2); HEMOGLOBIN 12.7 GM/dL (10.7-15.3); LYMPH % 33.6 % (8-40); MCH 35.6 pg (25.7-33.7); MCHC 33.7 g/dl (32.0-36.0); MEAN CELL VOLUME 105.6 fl (80-96); MONO % 11.7 % (3.8-10.2); NEUT % 53.3 % (42.8-82.8); PLATELET COUNT 136 K/MM3 (134-434); RBC 3.57 M/mm3 (3.60-5.2); RDW 13.1 % (11.6-15.6); WHITE BLOOD COUNT 6.2 K/mm3 (4.0-10.0)
[2018-01-14 16:10] LABS: VENOUS PC02 49.5 mmHg (38-52); VENOUS PH 7.41 (7.32-7.42); VENOUS PO2 45.1 mmHg (28-48)
[2018-01-14 16:13] LABS: INR 0.97 (0.83-1.09); PROTHROMBIN TIME (PATIENT) 11.4 SEC (9.7-13.0)
[2018-01-14 16:16] LABS: ACTIVATED PTT 25.5 SECONDS (25.2-36.5)
[2018-01-14 17:01] LABS: URINE APPEARANCE CLEAR; URINE BILIRUBIN NEGATIVE (<2.0 mg/dL); URINE COLOR YELLOW; URINE GLUCOSE (UA) NEGATIVE (NEGATIVE); URINE KETONE TRACE (NEGATIVE); URINE LEUK ESTERASE NEGATIVE (NEGATIVE); URINE NITRITE NEGATIVE (NEGATIVE); URINE PROTEIN NEGATIVE (NEGATIVE)
[2018-01-14 18:51] LABS: ALBUMIN 3.1 g/dl (3.4-5.0); ALK PHOS 62 U/L (45-117); ANION GAP 6 MMOL/L (8-16); BILIRUBIN,TOTAL 0.2 mg/dL (0.2-1); BLOOD UREA NITROGEN 18 mg/dL (7-18); CALCIUM 8.8 mg/dL (8.5-10.1); CHLORIDE 110 mmol/L (98-107); CO2 29 mmol/L (21-32); CREATININE 0.6 mg/dL (0.55-1.3); GLUCOSE,RANDOM 92 mg/dL (74-106); POTASSIUM 4.1 mmol/L (3.5-5.1); SGOT/AST 24 U/L (15-37); SGPT/ALT 20 U/L (13-61); SODIUM 145 mmol/L (136-145)
[2018-01-14 18:56] LABS: PLATELET ESTIMATE ADEQUATE
[2018-01-14 18:57] LABS: MACROCYTOSIS 1+
--- NOTE | 2018-01-15 18:05 | EKG ---
Test Reason : Blood Pressure : / mmHG Vent. Rate : 083 BPM Atrial Rate : 083 BPM P-R Int : 150 ms QRS Dur : 080 ms QT Int : 406 ms P-R-T Axes : 058 040 045 degrees QTc Int : 477 ms POOR DATA QUALITY, INTERPRETATION MAY BE ADVERSELY AFFECTED NORMAL SINUS RHYTHM NORMAL ECG WHEN COMPARED WITH ECG OF 26-NOV-2016 22:24, NONSPECIFIC T WAVE ABNORMALITY NOW EVIDENT IN ANTERIOR LEADS Confirmed by ASHLEY MONAHAN, MARITZA ([id number]) on 01/15/2018 6:04:45 PM Referred By: Confirmed By:MARITZA RAMIREZ MD
== END 2018-01-14 23:14 ==
LOC: JER 12:45
DX: R50.9 Fever, unspecified (principal); I10 Essential (primary) hypertension; F03.90 Unspecified dementia, unspecified severity, without behavioral disturbance, psychotic disturbance, mood disturbance, and anxiety; D61.9 Aplastic anemia, unspecified; G50.0 Trigeminal neuralgia; H40.9 Unspecified glaucoma; M81.0 Age-related osteoporosis without current pathological fracture; Z87.440 Personal history of urinary (tract) infections; L89.329 Pressure ulcer of left buttock, unspecified stage
CPT/HCPCS: 36415; 71045-TC-FY; 80053; 81003; 82803; 83605; 84484; 85025; 85610; 85730; 87040; 87086; 87186; 87804; 93005; 93010; 99282-25